=== PATIENT | male | born 1990 | race Caucasian/White ===

== ENCOUNTER → 2022-01-02 | Outpatient (REF) | payer OTHER | LOC: M LAB REF 15:54 | PROVIDERS: ATTEND Surgery | DX: L72.0 Epidermal cyst (principal) ==

== ENCOUNTER 2022-02-26 18:54 | Emergency (ER) | payer OTHER ==
[~2022-02-26] VITALS: Ht 193 cm; Wt 103.7 kg
[2022-02-26 18:54] VITALS: BP 140/90
[2022-02-26] MEDS ORDERED: NAPROXEN 250 MG TAB PO ONE (19:35)
[2022-02-26] MEDS ORDERED: NEOSPORIN OINT 0.9 GM PKT TOP ONE (19:35)
[2022-02-26] MEDS ORDERED: EMLA CREAM 5GM TUBE (LIDOCAINE/PRILOCAINE) TOP ONE (19:35)
== END 2022-02-26 20:16 | disposition home or self-care (01) ==
LOC: M ED 18:54
DX: S01.01XA Laceration without foreign body of scalp, initial encounter (principal); W01.198A Fall on same level from slipping, tripping and stumbling with subsequent striking against other object, initial encounter; Y92.410 Unspecified street and highway as the place of occurrence of the external cause

== ENCOUNTER → 2022-06-01 | Outpatient (REF) | payer OTHER | LOC: M LAB REF 16:19 | PROVIDERS: ATTEND Physician Assistant | DX: J02.9 Acute pharyngitis, unspecified (principal) ==

== ENCOUNTER → 2023-09-10 | Outpatient (CLI) | payer OTHER ==
[~2023-09-10] MED LIST: E-Z-GAS II EFFERVESCENT PACKET (SODIUM BICARB./CITRIC ACID/SIMETHICONE) As Ordered ONE; E-Z-HD 98% w/w 340GM SUSP BTL As Ordered ONE; E-Z-PAQUE 96% w/w SUSP 176GM BTL As Ordered ONE
== END ==
LOC: M RAD 07:48
PROVIDERS: ATTEND Surgery
DX: K21.9 Gastro-esophageal reflux disease without esophagitis (principal)

== ENCOUNTER → 2024-02-07 | Outpatient (REF) | LOC: M PLAIMG 08:48 | PROVIDERS: ATTEND Internal Medicine | DX: R06.02 Shortness of breath (principal) ==